=== PATIENT | female | born 1960 | race American Indian/Alaskan Native ===

== ENCOUNTER 2016-07-11 09:37 | Outpatient (CLI) | payer BC ==
--- NOTE | 2016-07-11 11:34 | Mammography Report ---
BONE DEXA:07/11/16 09:37:00 CLINICAL: Postmenopausal. No comparison. TECHNIQUE: Two site bone DEXA performed on an Hologic scanner. FINDINGS: The average BMD of the lumbar spine L1-L4 is 1.461g/cm squared with a T-score of +2.8 and a Z-score of +4.1. The average BMD of the left hip is 1.012g/cm squared with a T-score of -0.1 and a Z-score of +0.5. IMPRESSION: WHO classification: Normal with average fracture risk based on both spine and left hip measurements. RECOMMENDATION: Clinical correlation and routine screening. DEFINITIONS: BMD = Bone Mineral Density T-score = BMD related to mean peak bone mass of young adult (mean expressed in Standard Deviation) Z-score = Age matched BMD expressed in SD World Health Organization (WHO) Diagnostic Criteria Normal T-score > -1 SD Osteopenia T-score between -1 and -2.4 SD Osteoporosis T-score -2.5 SD or below NOTE: BMD is not the only risk factor for fracture. One should also consider factors such as the patient's age, risk of falling, previous osteoporotic fracture, family history of osteoporotic fractures, current smoker, and low body weight. Z-scores are not calculated if >80 years of age.
== END 2016-07-11 09:38 | disposition home or self-care (01) ==
LOC: SPVWC 09:37
PROVIDERS: ATTEND Internal Medicine Hematology & Oncology
DX: Z78.0 Asymptomatic menopausal state (principal); C50.511 Malignant neoplasm of lower-outer quadrant of right female breast
CPT/HCPCS: 77080

== ENCOUNTER 2018-07-12 11:11 | Outpatient (CLI) | payer BC ==
--- NOTE | 2018-07-12 14:22 | Mammography Report ---
BONE DENSITY STUDY: DEFINITIONS: BMD = Bone Mineral Density T-score = BMD related to mean peak bone mass of young adult (mean expressed in Standard Deviation) Z-score = Age matched BMD expressed in SD World Health Organization (WHO) Diagnostic Criteria Normal T-score > -1 SD Osteopenia T-score between -1 and -2.4 SD Osteoporosis T-score -2.5 SD or below FINDINGS: The weighted average BMD of lumbar spine L1-L4 is 1.473 with a T-score of 2.9. The weighted average BMD of the left hip is 1.025 with a T-score of 0.0. When compared to her prior exam in June 2016 the overall bone density of the lumbar spine has remained generally stable with L1 only demonstrating decreased density. No significant change in the left hip. IMPRESSION: The patient's average T-score is diagnostic for normal bone density and low relative risk for fracture. NOTE: BMD is not the only risk factor for fracture; also consider factors such as the patient's age, risk of falling, previous osteoporotic fracture, family history of osteoporotic fractures, current smoker, and low body weight. Galaviz's triangle is a region of interest in femur, predominantly of trabecular bone. It is not a true anatomic site, and [facility] does not recommend its use clinically.
== END 2018-07-12 11:12 | disposition home or self-care (01) ==
LOC: SPVWC 11:11
PROVIDERS: ATTEND Internal Medicine Hematology & Oncology
DX: C50.511 Malignant neoplasm of lower-outer quadrant of right female breast (principal); G62.0 Drug-induced polyneuropathy; E78.00 Pure hypercholesterolemia, unspecified; I10 Essential (primary) hypertension; Z78.0 Asymptomatic menopausal state
CPT/HCPCS: 77080

== ENCOUNTER 2020-12-16 11:20 | Outpatient (CLI) | payer BC ==
--- NOTE | 2020-12-16 12:42 | Ultrasound Report ---
ULTRASOUND BREAST LEFT LIMITED, 12/16/2020 CLINICAL INFORMATION / INDICATION: LEFT BREAST PAIN/SWELLING/PAIN. Patient is status post bilateral m astectomies with history of breast cancer. TECHNIQUE: Targeted ultrasound evaluation was performed of the area of interest. COMPARISON: None. FINDINGS: Ultrasound imaging of the 4:00 breast (area of pain) demonstrates normal subcutaneous echotexture wit hout evidence of mass or architectural distortion. There is partial visualization of a breast implant . IMPRESSION: No sonographic evidence of malignancy. Follow up recommendation: Back to schedule. BI-RADS Category 1: Negative. A normal or "negative" report should not preclude biopsy or follow-up of a clinically suspicious find ing. Signer Name: Jeromy Salter DO Signed: 12/16/2020 12:38 PM Workstation Name: [email or web address]
== END 2020-12-16 11:21 | disposition home or self-care (01) ==
LOC: SPVWC 11:20
PROVIDERS: ATTEND Internal Medicine Hematology & Oncology
DX: C50.511 Malignant neoplasm of lower-outer quadrant of right female breast (principal); G62.0 Drug-induced polyneuropathy

== ENCOUNTER 2021-01-11 12:39 | Outpatient (CLI) | payer BC ==
--- NOTE | 2021-01-11 15:02 | Magnetic Resonance Report ---
Bilateral breast MR without and with contrast. History: History of breast cancer, status post bilateral mastectomies with implant reconstruction. Eduardo hill reports left breast pain. Comparison: 09/29/2019, 12/16/2020. Technique: Multiplanar multisequence MR images of the breast were obtained before and after the intra venous administration of 19 mL of Clariscan. Post processing analysis and review was performed on a [employer] computer workstation. Findings: Patient is status post bilateral mastectomies with implant reconstructions. Both implants appear inta ct and appropriately positioned. Located along the upper outer far posterior aspect of the reconstructed left breast are two enlarged lymph nodes. The largest of these measures up to 1.6 x 1.2 cm. These appear new compared to 09/29/2019 CT. No suspicious findings within the reconstructed right breast. No abnormal right axillary or internal mammary lymph nodes. Impression: There are two enlarged lymph nodes within the left upper outer far posterior reconstructed left breas t. Recommend targeted ultrasound (focused in the left breast around the 1:00 to 2:00 position, 11 to 13 cm from the nipple). Patient is status post bilateral mastectomies with implant reconstructions. The implants appear intac t and appropriately positioned. BIRADS 0: Incomplete--Needs Additional Imaging Evaluation. A normal MRI does not exclude the presence of some forms of breast malignancy as literature reports s uggest that some forms of ductal carcinoma in situ or lobular carcinoma, particularly, may not be det ected on MRI. The sensitivity and specificity of MRI for cancers under 5 mm may be reduced. MRI does not replace the recommendation for annual conventional mammographic evaluation and should be used as an adjunct to mammography and physical examination as necessary. Signer Name: Darryl Salcido MD Signed: 01/11/2021 2:57 PM Workstation Name: [id number]
== END 2021-01-11 12:40 | disposition home or self-care (01) ==
LOC: SPVIMAG 12:39
PROVIDERS: ATTEND Internal Medicine Hematology & Oncology
DX: C50.511 Malignant neoplasm of lower-outer quadrant of right female breast (principal); G62.0 Drug-induced polyneuropathy; R59.0 Localized enlarged lymph nodes
CPT/HCPCS: A9575; C8908; 77049